=== PATIENT | male | born 1950 | race Caucasian/White ===

== ENCOUNTER 2022-05-05 11:19 | Emergency (ER) | payer MEDICARE, OTHER ==
[~2022-05-05 11:19] MED LIST: ASPIRIN CHEWABL81 MG PO; BETA PROSTATE PO; CETIRIZINE HCL10 M1 PO; FARXIGA10 MG PO; GLIMEPIRIDE PO; JANUVIA100 MG PO; LOZOL2.5 MG PO; METFORMI PO; NORCO 5-325 TA1 EACH PO; OMEGA 3 FISH O1 EACH PO; POTASSIUM99 M1 PO; SUPER B COMPLE150 MG PO; VITAMIN D3400 UNIT PO; VITAMIN E400 UNI1 PO
[2022-05-05 12:48] LABS: BASOPHIL 0.7 % (0-2); EOSINOPHIL 5.1 % (0-7); HCT 44.1 % (42.0-52.0); HGB 15.1 g/dl (13.2-18.0); LYMPHOCYTE 36.1 % (15-48); MCH 30.2 pg (25.0-31.0); MCHC 34.2 g/dL (32.0-36.0); MCV 88.2 fL (78.0-100.0); MONOCYTE 12.5 % (0-12); MPV 10.8 fL (6.0-9.5); NEUTROPHIL 45.4 % (41-80); NRBC 0; PLT 175 K/uL (150-400); RDW 13.4 % (11.5-14.0); WBC 5.9 K/uL (4.0-10.5)
[2022-05-05 14:02] LABS: CORONAVIRUS 2019 SARS-COV-2 NEGATIVE (NEGATIVE); INFLUENZA A NAA NEGATIVE (NEGATIVE)
[2022-05-05 15:13] LABS: ALBUMIN 3.7 g/dL (3.4-5.0); BUN/CREAT RATIO (CALC) 17.5 RATIO; CREATININE 1.14 mg/dL (0.67-1.17); GLOBULIN (CALCULATION) 3.4 g/dL; POTASSIUM 4.4 mmol/L (3.5-5.1); TOTAL PROTEIN 7.1 g/dL (6.4-8.2)
== END 2022-05-05 16:50 | disposition home or self-care (01) ==
LOC: FER 11:19
PROVIDERS: Nurse Practitioner Family
DX: H53.2 Diplopia (principal); I10 Essential (primary) hypertension; E11.9 Type 2 diabetes mellitus without complications; Z88.0 Allergy status to penicillin; Z91.013 Allergy to seafood; Z79.4 Long term (current) use of insulin; Z79.899 Other long term (current) drug therapy; Z79.02 Long term (current) use of antithrombotics/antiplatelets; Z20.822 Contact with and (suspected) exposure to COVID-19
CPT/HCPCS: 36415; 70450; 80053; 85025; J1100; J1200; J1885; J2405; J7030; U0002